=== PATIENT | male | born 1970 ===

== ENCOUNTER 2018-07-27 15:32 | Emergency (ER) | payer OTHER ==
[2018-07-27 15:47] VITALS: BP 144/92; PULSE 66; RESP 18; TEMP 97.9; O2SAT 96
--- NOTE | 2018-07-27 16:04 | C.PDOC ---
History Of Present Illness 48 y/o male presents to the ER complaining of rash to bilateral hands which has been present for the past 2 weeks. Patient states that the rash started after he was using dishwater detergent and his skin started to crack. Denies having injury to hands, fever, chills, and hx of diabetes. Time Seen by Provider: 07/27/18 15:51 Chief Complaint (Nursing): Abnormal Skin Integrity History Per: Patient History/Exam Limitations: no limitations Onset/Duration Of Symptoms: Days Current Symptoms Are (Timing): Still Present Severity: Moderate Past Medical History Reviewed: Historical Data, Nursing Documentation, Vital Signs Vital Signs: Last Vital Signs Temp 97.9 F 07/27/18 15:44 Pulse 66 07/27/18 15:44 Resp 18 07/27/18 15:44 BP 144/92 H 07/27/18 15:44 Pulse Ox 96 07/27/18 15:44 - Medical History PMH: Anxiety, Back Problems, Depression, Diabetes (Prediabetic), HTN, Sleep Apnea Denies: Hepatitis, HIV, Seizures, Sexually Transmitted Disease Surgical History: Appendectomy - [facility] Procedures INJECT/INFUSE NEC (05/23/15) PHYSICAL THERAPY NEC (03/02/15) Family History: States: Hypertension - Social History Hx Alcohol Use: Yes Hx Substance Use: No - Immunization History Hx Tetanus Toxoid Vaccination: Yes (2012) Hx Influenza Vaccination: Yes (2013) Hx Pneumococcal Vaccination: No Review Of Systems Except As Marked, All Systems Reviewed And Found Negative. Constitutional: Negative for: Fever, Chills Skin: Positive for: Rash (bilateral hands) Physical Exam - Physical Exam Appears: Non-toxic, No Acute Distress Skin: Normal Color, Warm, Dry, Rash (multiple areas of cracked skin to bilateral hands, no signs of superinfection) Head: Atraumatic, Normacephalic Eye(s): bilateral: Normal Inspection Nose: Normal Oral Mucosa: Moist Neck: Supple Chest: Symmetrical Cardiovascular: Rhythm Regular Respiratory: Normal Breath Sounds, No Rales, No Rhonchi, No Wheezing Neurological/Psych: Oriented x3, Normal Speech ED Course And Treatment O2 Sat by Pulse Oximetry: 96 (RA) Pulse Ox Interpretation: Normal Medical Decision Making Medical Decision Making: Impression: Rash Plan: Patient has been discharged with prescription for Lotrisone and instructed to follow up with door captain in 2 days. Disposition Counseled Patient/Family Regarding: Studies Performed, Diagnosis, Need For Followup, Rx Given - Disposition Referrals: [facility] at [facility] [Outside] Tiffanie Wilson MD [Medical Doctor] - Disposition: HOME/ ROUTINE Disposition Time: 16:02 Condition: STABLE Additional Instructions: follow up with your doctor within 2 days call to make an appointment take medication as prescribed return to ER if symptoms worsens or progress Prescriptions: Clotrimazole/Betamethasone [Lotrisone] 1 applic EXT BID #45 gra Instructions: Skin Rash (DC) Forms: [facility] (Uzbek), General Discharge Instructions - Clinical Impression Clinical Impression: Rash - Scribe Statement The provider has reviewed the documentation as recorded by the Beba Osullivan Provider Attestation: All medical record entries made by the Rafaelaibjane were at my direction and personally dictated by me. I have reviewed the chart and agree that the record accurately reflects my personal performance of the history, physical exam, medical decision making, and the department course for this patient. I have also personally directed, reviewed, and agree with the discharge instructions and disposition.
== END 2018-07-27 16:32 | disposition home or self-care (01) ==
LOC: C.ER 15:32
DX: R21 Rash and other nonspecific skin eruption (principal)